=== PATIENT | female | born 1975 | race Caucasian/White ===

== ENCOUNTER 2017-05-10 15:15 | Emergency (ER) | payer BC ==
[2017-05-10 15:54] VITALS: BP 118/79; PULSE 82; TEMP 98.7; BMI 47.6
--- NOTE | 2017-05-10 16:05 | PDOC ---
History of Present Illness - General History Source: Patient Exam Limitations: No Limitations - History of Present Illness Initial Comments: 05/10/17 16:57 The patient is a 41 year old female with history of diabetes who presents to the ED complaining of several days of bilateral flank pain with associated chills. States her pain is now interfering with sleep at night. She also reports mild hematuria, now improved. No dysuria or hematuria. No fever. She has not taken any medication for pain. <Nery Romero - Last Filed: 05/10/17 18:04> <Linh Villanueva - Last Filed: 05/10/17 18:36> - General Chief Complaint: Back Pain Stated Complaint: LBP, HEMATURIA Time Seen by Provider: 05/10/17 16:05 Past History <Nery Romero - Last Filed: 05/10/17 18:04> - Past Medical History Anemia: Yes (H/O) Asthma: Yes (WITH ANXIETY) Cancer: No Cardiac Disorders: No CVA: No COPD: No CHF: No Dementia: No Diabetes: Yes (NIDDM) GI Disorders: Yes (GERD) Disorders: No HTN: No Hypercholesterolemia: No Liver Disease: Yes Seizures: No Thyroid Disease: No Other medical history: GLAUCOMA - Surgical History Abdominal Surgery: No Appendectomy: No Cardiac Surgery: No Cholecystectomy: No Lung Surgery: No Neurologic Surgery: No Orthopedic Surgery: Yes (LT CARPAL TUNNEL RELEASE 2009) - Immunization History Immunization Up to Date: No - Suicide/Smoking/Psychosocial Hx Smoking Status: No Smoking History: Never smoked Have you smoked in the past 12 months: No Number of Cigarettes Smoked Daily: 0 Hx Alcohol Use: No Drug/Substance Use Hx: No Substance Use Type: None Hx Substance Use Treatment: No <Linh Villanueva - Last Filed: 05/10/17 18:36> - Past Medical History Allergies/Adverse Reactions: Allergies Allergy/AdvReac Type Severity Reaction Status Date / Time aspirin Allergy Severe Difficulty Verified 01/28/16 10:14 Breathing fluticasone propionate Allergy Severe Hives Verified 01/28/16 10:14 [From Advair Diskus] salmeterol xinafoate Allergy Severe Hives Verified 01/28/16 10:14 [From Advair Diskus] influenza virus vaccine, Allergy Intermediate rash Verified 01/28/16 10:14 specific [influenza virus vacc,specific] Home Medications: Ambulatory Orders Metformin HCl [Glucophage] 1,000 mg PO BID 05/10/17 Metformin HCl [Glucophage] 500 mg PO DAILY 05/10/17 Sulfamethoxazole/Trimethoprim [Bactrim Ds -] 1 tab PO BID #28 tablet 05/10/17 Review of Systems - Review of Systems Able to Perform ROS?: Yes Comments:: 05/10/17 17:06 GENERAL/CONSTITUTIONAL: +Chills. No fever. No weakness. HEAD, EYES, EARS, NOSE AND THROAT: No change in vision. No ear pain or discharge. No sore throat. CARDIOVASCULAR: No chest pain or shortness of breath. RESPIRATORY: No cough, wheezing, or hemoptysis. GASTROINTESTINAL: No nausea, vomiting, diarrhea or constipation. GENITOURINARY: +R flank pain. +Hematuria (resolved). No dysuria, frequency, or change in urination. MUSCULOSKELETAL: No joint or muscle swelling or pain. No neck or back pain. SKIN: No rash NEUROLOGIC: No headache, vertigo, loss of consciousness, or change in strength/ sensation. ENDOCRINE: No increased thirst. No abnormal weight change. HEMATOLOGIC/LYMPHATIC: No anemia, easy bleeding, or history of blood clots. ALLERGIC/IMMUNOLOGIC: No hives or skin allergy. <Nery Romero - Last Filed: 05/10/17 18:04> *Physical Exam - Vital Signs Last Vital Signs Temp Pulse Resp BP Pulse Ox 98.7 F 82 17 118/79 97 05/10/17 15:37 05/10/17 15:37 05/10/17 15:37 05/10/17 15:37 05/10/17 15:37 - Physical Exam Comments: 05/10/17 17:07 GENERAL: Awake, alert, and fully oriented, in no acute distress HEAD: No signs of trauma EYES: PERRLA, EOMI, sclera anicteric, conjunctiva clear ENT: Auricles normal inspection, nares patent. Moist mucosa NECK: Normal ROM, supple, no JVD, or masses LUNGS: Breath sounds equal, clear to auscultation bilaterally. No wheezes, and no crackles HEART: Regular rate and rhythm, normal S1 and S2, no murmurs, rubs or gallops ABDOMEN: Bilateral CVA tenderness. Soft, normoactive bowel sounds. No guarding , no rebound. No masses EXTREMITIES: Normal range of motion, no edema. No clubbing or cyanosis. No cords, erythema, or tenderness NEUROLOGICAL: Alert and oriented x 3. Moves all extremities. Face is symmetric. SKIN: Warm, Dry, normal turgor, no rashes or lesions noted. <Nery Romero - Last Filed: 05/10/17 18:04> - Vital Signs Last Vital Signs Temp Pulse Resp BP Pulse Ox 98.7 F 82 17 118/79 97 05/10/17 15:37 05/10/17 15:37 05/10/17 15:37 05/10/17 15:37 05/10/17 15:37 <Linh Villanueva - Last Filed: 05/10/17 18:36> ED Treatment Course - ADDITIONAL ORDERS Additional order review: Laboratory Results 05/10/17 15:56 Urine Color Yellow Urine Appearance Clear Urine pH 5.5 Ur Specific [place] 1.020 Urine Protein Negative Urine Glucose (UA) Negative Urine Ketones Negative Urine Blood Negative Urine Nitrite Negative Urine Bilirubin Negative Urine Urobilinogen 0.2 Ur Leukocyte Esterase 1+ H Urine HCG, Qual Negative - RADIOLOGY Radiograph Interpretation: 05/10/17 18:03 CT of abdomen and pelvis. Preliminary interpretation by [facility] [employer] IMPRESSION: 1. Findings which are suspicious for hepatic cirrhosis and likely portosystemic hypertension. There appears to be periportal and peripancreatic adenopathy which can be due to liver disease. No significant ascites. 2. No hydroureteronephrosis or nephroureterolithiasis. THIS DOCUMENT HAS BEEN ELECTRONICALLY SIGNED Priyanka Nolan MD 05/10/2017 17:58 EST <Nery Romero - Last Filed: 05/10/17 18:04> Medical Decision Making - Medical Decision Making 05/10/17 17:43 UA shows 1+ LE, no WBCs. Will obtain spiral CT to r/o kidney stone. 05/10/17 18:34 Urine micro resulted, now showing 5-8 WBCs (initially marked as negative). CT shows cirrhotic liver which was preexisting as per patient. Will treat with abx in light of history of UTI leading to sepsis, as she is symptomatic and UA with signs of infection. No vomiting or fever. Stable for DC home. Patient declined pain medication in ED. <Linh Villanueva - Last Filed: 05/10/17 18:36> *DC/Admit/Observation/Transfer - Attestations Scribe Attestion: 05/10/17 17:09 Documentation prepared by Nery Romero, acting as medical practice manager for Linh Villanueva MD. <Nery Romero - Last Filed: 05/10/17 18:04> - Discharge Dispostion Admit: No <Linh Villanueva - Last Filed: 05/10/17 18:36> Diagnosis at time of Disposition: UTI (urinary tract infection) Qualifiers: Urinary tract infection type: site unspecified Hematuria presence: without hematuria Qualified Code(s): N39.0 - Urinary tract infection, site not specified - Discharge Dispostion Disposition: HOME Condition at time of disposition: Good - Prescriptions Prescriptions: Sulfamethoxazole/Trimethoprim [Bactrim Ds -] 1 tab PO BID #28 tablet - Referrals Referrals: Seb Suh MD [Primary Care Provider] - - Patient Instructions Printed Discharge Instructions: DI for Kidney Infection, DI for Urinary Tract Infection (UTI) - Post Discharge Activity
[2017-05-10 16:24] LABS: PH,URINE 5.5 (4.5-8); URINE APPEARANCE Clear; URINE BILIRUBIN Negative (NEGATIVE); URINE BLOOD Negative (NEGATIVE); URINE GLUCOSE (UA) Negative (NEGATIVE); URINE KETONE Negative (NEGATIVE); URINE NITRITE Negative (NEGATIVE); URINE PROTEIN Negative (NEGATIVE); URINE UROBILINOGEN 0.2 (0.2-1.0)
[2017-05-10 16:27] LABS: HCG,QUALITATIVE URINE NEGATIVE; URINE COLOR YELLOW
[2017-05-10 17:58] LABS: URINE RBC 0-2 /hpf (0-3)
[2017-05-10] MEDS ORDERED: SULFAMETHOXAZOLE/TRIMETHOPRIM 800MG/160MG D.S. TABLET PO ONE (18:09)
[2017-05-10] MEDS ORDERED: SULFAMETHOXAZOLE/TRIMETHOPRIM 800MG/160MG D.S. TABLET ONE (18:13)
== END 2017-05-10 18:28 | disposition home or self-care (01) ==
LOC: FER 15:15 → SUPCPDRO 15:15 → FER 18:28
DX: N39.0 Urinary tract infection, site not specified (principal); E11.9 Type 2 diabetes mellitus without complications; F41.9 Anxiety disorder, unspecified; K21.9 Gastro-esophageal reflux disease without esophagitis; K76.9 Liver disease, unspecified
CPT/HCPCS: 74176; 81003; 81015; 84703; 87086; 87186; 99282-25

== ENCOUNTER 2017-09-08 20:30 | Emergency (ER) | payer BC ==
[2017-09-08 20:42] VITALS: BP 158/89; PULSE 110; TEMP 99; BMI 47.9
[2017-09-08 22:09] LABS: URINE APPEARANCE Clear; URINE BILIRUBIN Negative (NEGATIVE); URINE BLOOD Trace-lysed (NEGATIVE); URINE COLOR YELLOW; URINE GLUCOSE (UA) Negative (NEGATIVE); URINE KETONE Trace (NEGATIVE); URINE LEUK ESTERASE 2+ (NEGATIVE); URINE NITRITE Negative (NEGATIVE); URINE PROTEIN 1+ (NEGATIVE)
[2017-09-08 22:44] LABS: EPI CELLS FEW /HPF; URINE WBC 15-25 (0-5)
[2017-09-08 22:45] LABS: URINE BACTERIA FEW /hpf (NEGATIVE)
--- NOTE | 2017-09-08 22:59 | PDOC ---
History of Present Illness - General Chief Complaint: Respiratory Stated Complaint: FEVER,COUGH SINCE THURSDAY Time Seen by Provider: 09/08/17 20:35 - History of Present Illness Initial Comments: 09/08/17 22:55 "Patient is a 42 year old F, with PMHx significant for type 2 DM and remote history of asthma, who presents with cold symptoms for 1 week. Patient states that 1 week ago she started having a fever. She also endorses a stuffy nose and productive cough with clear phlegm. She states that sometimes her cough becomes violent enough that it causes her to vomit (non-bilious, non-bloody) but denies any abdominal pain. Denies N/V/D at this time. She also endorses dysuria for the past 3 days. She states that she used her nebulizer for past 2 days and states that it helped somewhat with her cough. She also had an old prescription for a zpack which also provided mild relief. Pt denies CP/SOB. Denies leg swelling. Denies recent travel/immobilization. No h/o DVT/PE. Past History - Past Medical History Allergies/Adverse Reactions: Allergies Allergy/AdvReac Type Severity Reaction Status Date / Time aspirin Allergy Severe Difficulty Verified 09/08/17 20:32 Breathing fluticasone propionate Allergy Severe Hives Verified 09/08/17 20:32 [From Advair Diskus] salmeterol xinafoate Allergy Severe Hives Verified 09/08/17 20:32 [From Advair Diskus] influenza virus vaccine, Allergy Intermediate rash Verified 09/08/17 20:32 specific [influenza virus vacc,specific] Home Medications: Ambulatory Orders Metformin HCl [Glucophage] 1,000 mg PO BID 05/10/17 Metformin HCl [Glucophage] 500 mg PO DAILY 05/10/17 Cephalexin [Keflex] 500 mg PO BID #10 capsule 09/08/17 levoFLOXacin [Levaquin] 750 mg PO DAILY #5 tab 09/08/17 Prednisone [Prednisone 50 MG TABLETS] 50 mg PO DAILY #4 tablet 09/09/17 Anemia: Yes (H/O) Asthma: Yes (WITH ANXIETY) Cancer: No Cardiac Disorders: No CVA: No COPD: No CHF: No Dementia: No Diabetes: Yes (NIDDM) GI Disorders: Yes (GERD) Disorders: No HTN: No Hypercholesterolemia: No Liver Disease: Yes Seizures: No Thyroid Disease: No - Surgical History Abdominal Surgery: No Appendectomy: No Cardiac Surgery: No Cholecystectomy: No Lung Surgery: No Neurologic Surgery: No Orthopedic Surgery: Yes (LT CARPAL TUNNEL RELEASE 2010) - Immunization History Immunization Up to Date: No - Suicide/Smoking/Psychosocial Hx Smoking Status: No Smoking History: Never smoked Have you smoked in the past 12 months: No Number of Cigarettes Smoked Daily: 0 Information on smoking cessation initiated: No Hx Alcohol Use: No Drug/Substance Use Hx: No Substance Use Type: None Hx Substance Use Treatment: No Review of Systems - Review of Systems Comments:: 09/08/17 22:58 """GENERAL/CONSTITUTIONAL: + fever, no chills. No weakness. HEAD, EYES, EARS, NOSE AND THROAT: No change in vision. No ear pain or discharge. No sore throat. CARDIOVASCULAR: No chest pain or shortness of breath. RESPIRATORY: +cough, no wheezing, or hemoptysis. GASTROINTESTINAL: + vomiting, no diarrhea or constipation. GENITOURINARY: + dysuria, no frequency, or change in urination. MUSCULOSKELETAL: No joint or muscle swelling or pain. No neck or back pain. SKIN: No rash NEUROLOGIC: no headache, no vertigo, loss of consciousness, or change in strength/sensation. ENDOCRINE: No increased thirst. No abnormal weight change. HEMATOLOGIC/LYMPHATIC: No anemia, easy bleeding, or history of blood clots. ALLERGIC/IMMUNOLOGIC: No hives or skin allergy. """ *Physical Exam - Vital Signs Last Vital Signs Temp Pulse Resp BP Pulse Ox 99 F 110 H 18 158/89 97 09/08/17 20:38 09/08/17 20:38 09/08/17 20:38 09/08/17 20:38 09/08/17 20:38 - Physical Exam Comments: 09/08/17 22:58 "GENERAL: Awake, alert, and fully oriented, in no acute distress. HEAD: No signs of trauma EYES: PERRLA, EOMI, sclera anicteric, conjunctiva clear ENT: Auricles normal inspection, hearing grossly normal, nares patent, oropharynx clear without exudates. Moist mucosa NECK: Nontender, no stepoffs, Normal ROM, supple, no lymphadenopathy, JVD, or masses LUNGS: +prolonged expiratory phase, Breath sounds equal, clear to auscultation bilaterally. No wheezes, and no crackles HEART: Regular rate and rhythm, normal S1 and S2, no murmurs, rubs or gallops ABDOMEN: Soft, nontender, normoactive bowel sounds. No guarding, no rebound. No masses EXTREMITIES: Normal range of motion, no edema. No clubbing or cyanosis. No cords, erythema, or tenderness NEUROLOGICAL: Cranial nerves II through XII intact. 5/5 strength and sensation in all extremities, Normal speech, normal gait, normal cerebellar function SKIN: Warm, Dry, normal turgor, no rashes or lesions noted. " ED Treatment Course - ADDITIONAL ORDERS Additional order review: Laboratory Results 09/08/17 09/08/17 22:00 22:00 Urine Color Yellow Urine Appearance Clear Urine pH 6.0 Ur Specific [place] 1.025 Urine Protein 1+ H Urine Glucose (UA) Negative Urine Ketones Trace Urine Blood Trace-lysed H Urine Nitrite Negative Urine Bilirubin Negative Urine Urobilinogen 1.0 Ur Leukocyte Esterase 2+ H Urine RBC 2-5 Urine WBC 15-25 Ur Epithelial Cells Few Urine Bacteria Few Urine HCG, Qual Negative - RADIOLOGY Radiology Studies Ordered: Category Date Time Status CHEST PA & LAT [RAD] Stat Radiology 09/08/17 21:57 Taken Medical Decision Making - Medical Decision Making 09/08/17 22:58 42 F with URI like symptoms x 1 week. Pt with no wheezing but prolonged expiratory phase on exam. Possible asthma component. Given duration of symptoms , will also r/o PNA with CXR. Pt also with dysuria so will evaluate for UTI. - CXR - UA, UCx - Nebulizers 09/08/17 23:57 UA consistent with UTI. Prelim read of CXR shows possible bilateral opacities. I discussed with pt my recommendation for inpt admission for IV abx given outpt failure of azithromycin. However, pt refusing admission at this time. Pt already received 1 dose keflex for her UTI in ED. Will switch abx to levaquin, which should cover for CAP as well as UTI. Pt instructed to return in 48 hours if symptoms have not improved. Pt is well appearing. Clinically stable for DC at this time. Pt with some mild persistent tachycardia, likely 2/2 nebulizer use. I discussed the physical exam findings, ancillary test results and final diagnoses with the patient. I answered all of the patient's questions. The patient was satisfied with the care received and felt comfortable with the discharge plan and treatment plan. The patient agrees to follow up with the primary care physician within 24-72 hours. *DC/Admit/Observation/Transfer Diagnosis at time of Disposition: UTI (urinary tract infection), PNA (pneumonia) - Discharge Dispostion Disposition: HOME Condition at time of disposition: Stable - Prescriptions Prescriptions: Cephalexin [Keflex] 500 mg PO BID #10 capsule levoFLOXacin [Levaquin] 750 mg PO DAILY #5 tab Prednisone [Prednisone 50 MG TABLETS] 50 mg PO DAILY #4 tablet - Referrals - Patient Instructions Printed Discharge Instructions: Urinary Tract Infection Additional Instructions: You have a urine infection. You may also have pneumonia. Take the levaquin as prescribed to treat both. Use your nebulizer every 4 hours for your cough. If you do not feel better after 48 hours or if you experience worsening cough, shortness of breath, or any other concerning symptoms, return to the ER immediately. You may need IV antibiotics if you do not feel better by that time. Otherwise, follow up with your primary doctor within 1 week. - Post Discharge Activity Forms/Work/School Notes: Back to Work - Attestations Physician Attestion: 09/09/17 00:03 I, Dr. Korey Amaya MD, attest that this document has been prepared under my direction and personally reviewed by me in its entirety. I further attest, that it accurately reflects all work, treatment, procedures and medical decision -making performed by me.
[2017-09-08] MEDS ORDERED: CEPHALEXIN MONOHYDRATE 500 MG CAPSULE (UD) PO ONE (23:00)
[2017-09-08] MEDS ORDERED: CEPHALEXIN MONOHYDRATE 500 MG CAPSULE (UD) ONE (23:02)
[2017-09-08] MEDS ORDERED: ALBUTEROL SO4 2.5/IPRATROPIUM 0.5 INH SOL 3 ML VIAL.NEB. NEB ONE ×2 (23:05)
== END 2017-09-09 00:11 | disposition home or self-care (01) ==
LOC: FER 20:30
PROC: 3E0F7GC Introduction of Other Therapeutic Substance into Respiratory Tract, Via Natural or Artificial Opening (ICD-10-PCS; principal; 2017-09-08)
DX: J18.9 Pneumonia, unspecified organism (principal); N39.0 Urinary tract infection, site not specified; E11.9 Type 2 diabetes mellitus without complications; J45.909 Unspecified asthma, uncomplicated; Z79.84 Long term (current) use of oral hypoglycemic drugs
CPT/HCPCS: 71046-TC-FY; 81003; 81015; 84703; 87086; 99281-25; J7620

== ENCOUNTER 2018-01-07 08:32 | Day surgery (SDC) | payer BC ==
--- NOTE | 2018-01-07 10:18 | PROC ---
Endoscopy Procedure Endoscopy procedure completed. Please see scanned procedure report.
[2018-01-07 10:53] VITALS: TEMP 98.6
[2018-01-07 11:34] VITALS: BP 134/61; PULSE 82
--- NOTE | 2018-01-08 13:20 | PATH ---
Surgical Pathology Report Patient Name: LUIS MELLO [facility]. Rec. #: [id number] /Age/Gender: 1975 (Age: 42) / F Account: [id number] Location: [facility]-ENDOSCOPY Taken: 01/07/2018 Received: 01/07/2018 Reported: 01/08/2018 Physicians: Sanju Mulligan M.D. Specimen(s) Received A: BX 2ND PORTION DUODENUM B: BX ANTRUM AND BODY Clinical History Cirrhosis of liver, nonalcoholic steatohepatitis Postoperative diagnosis: Gastritis, esophageal varices Final Diagnosis A. SECOND PORTION DUODENUM, BIOPSY: DUODENAL MUCOSA WITH NO DIAGNOSTIC ABNORMALITIES. B. ANTRUM AND BODY, BIOPSY: GASTRIC MUCOSA WITH MILD CHRONIC GASTRITIS. IMMUNOSTAIN IS NEGATIVE FOR H. PYLORI ORGANISMS. Electronically Signed Alejandro Fernandez M.D. Gross Description A. Received in formalin, labeled "biopsy second portion of duodenum" are 2 snow, irregular portions of soft tissue averaging 0.3 cm. in greatest dimension. The specimens are submitted in toto in one cassette. B. Received in formalin, labeled "biopsy antrum and body" are 2 snow, irregular portions of soft tissue measuring 0.2 and 0.6 cm. in greatest dimension. The specimens are submitted in toto in one cassette. 01/07/2018 [facility]01/07/2018
== END 2018-01-07 11:35 | disposition home or self-care (01) ==
LOC: JASU-ENDO 08:32
PROVIDERS: ATTEND Internal Medicine Gastroenterology
PROC: 0DB68ZX Excision of Stomach, Via Natural or Artificial Opening Endoscopic, Diagnostic (ICD-10-PCS; 2018-01-07)
PROC: 0DB98ZX Excision of Duodenum, Via Natural or Artificial Opening Endoscopic, Diagnostic (ICD-10-PCS; principal; 2018-01-07 09:15)
DX: K74.69 Other cirrhosis of liver (principal); K29.60 Other gastritis without bleeding; I85.00 Esophageal varices without bleeding; E11.9 Type 2 diabetes mellitus without complications; Z79.84 Long term (current) use of oral hypoglycemic drugs; I10 Essential (primary) hypertension; D64.9 Anemia, unspecified
CPT/HCPCS: 82962; 84703; 88305-TC; 88342-TC

== ENCOUNTER 2018-03-23 08:53 | Day surgery (SDC) | payer BC ==
[2018-03-22 10:06] VITALS: BMI 48.4
[2018-03-23] MEDS ORDERED: ONDANSETRON 4 MG/2 ML VIAL IVPUSH PRN ×2 (09:49→11:12)
[2018-03-23] MEDS ORDERED: LACTATED RINGERS SOLUTION 1,000 ML IV SCH (10:00)
--- NOTE | 2018-03-23 10:08 | HP ---
History & Physical Update - Physical Physical: No Change - Assessment Assessment: No Change - Plan Plan: No Change (hysteroscopy , D&C. polypectomy)
[2018-03-23] MEDS ORDERED: PROPOFOL 20 ML ONE (10:13)
[2018-03-23] MEDS ORDERED: MIDAZOLAM HCL 2 MG/2 ML SINGLE DOSE VIAL ONE (10:13)
[2018-03-23] MEDS ORDERED: SUCCINYLCHOLINE CHLORIDE 200 MG/10 ML VIAL ONE (10:14)
--- NOTE | 2018-03-23 10:19 | HP ---
Past Medical History - Primary Care Physician PCP:: Joel Adkins - Admission Chief Complaint: menometrorrhagia, EM polyp History of Present Illness: 42 yo f c/o heavy ,irregular vaginal bleeding, sono irregular EM .with EM polyp.admitted for hysteroscopy D&C ,polypectomy, rba to procedure discussed History Source: Patient Limitations to Obtaining History: No Limitations - Past Medical History Cardiovascular: Yes: HTN Pulmonary: Yes: Asthma Heme/Onc: Yes: Anemia Endocrine: Yes: Diabetes Mellitus - Past Surgical History Hx Myomectomy: No Hx Transabdominal Cerclage: No - Smoking History Smoking history: Never smoked Have you smoked in the past 12 months: No Aproximately how many cigarettes per day: 0 - Alcohol/Substance Use Hx Alcohol Use: No - Social History Usual Living Arrangement: Yes: With Spouse History of Recent Travel: No Home Medications - Allergies Allergies/Adverse Reactions: Allergies Allergy/AdvReac Type Severity Reaction Status Date / Time aspirin Allergy Severe Difficulty Verified 09/08/17 20:32 Breathing fluticasone propionate Allergy Severe Hives Verified 09/08/17 20:32 [From Advair Diskus] salmeterol xinafoate Allergy Severe Hives Verified 09/08/17 20:32 [From Advair Diskus] influenza virus vaccine, Allergy Intermediate rash Verified 09/08/17 20:32 specific [influenza virus vacc,specific] - Home Medications Home Medications: Ambulatory Orders Metformin HCl [Glucophage] 1,000 mg PO BID 05/10/17 Albuterol Sulfate [Proair Respiclick] 90 mcg IH DAILY PRN 01/06/18 Montelukast Na [Singulair -] 10 mg PO HS 01/06/18 Brimonidine Tartrate/Timolol [Combigan Eye Drops] 5 ml OP BID 03/23/18 Review of Systems - Review of Systems Constitutional: reports: No Symptoms Eyes: reports: No Symptoms HENT: reports: No Symptoms Neck: reports: No Symptoms Cardiovascular: reports: No Symptoms Respiratory: reports: No Symptoms Gastrointestinal: reports: No Symptoms Genitourinary: reports: Vaginal Bleeding Musculoskeletal: reports: No Symptoms Integumentary: reports: No Symptoms Neurological: reports: No Symptoms Endocrine: reports: No Symptoms Hematology/Lymphatic: reports: No Symptoms Psychiatric: reports: No Symptoms Physical Exam-[employer] Vital Signs: Vital Signs Temperature 98.6 F 03/23/18 09:43 Pulse Rate 91 H 03/23/18 09:43 Respiratory Rate 20 03/23/18 09:43 Blood Pressure 120/62 03/23/18 09:43 O2 Sat by Pulse Oximetry (%) 98 03/23/18 09:43 Constitutional: Yes: Well Nourished, No Distress, Calm, Obese Eyes: Yes: WNL, Conjunctiva Clear, EOM Intact HENT: Yes: WNL, Atraumatic, Normocephalic Neck: Yes: WNL, Supple, Trachea Midline Cardiovascular: Yes: WNL, Regular Rate and Rhythm Respiratory: Yes: WNL, Regular, CTA Bilaterally Gastrointestinal: Yes: WNL ...Rectal Exam: Yes: WNL Renal/: Yes: WNL External Genitalia: Yes: Normal Vaginal Exam: Yes: Normal Cervix: Yes: Normal Uterus: Yes: Enlarged Adnexa: Not Palpable: Left, Right Breast(s): Yes: WNL Musculoskeletal: Yes: WNL Extremities: Yes: WNL Edema: No Integumentary: Yes: WNL Neurological: Yes: WNL, Alert, Oriented ...Motor Strength: WNL Psychiatric: Yes: WNL, Alert, Oriented Problem List - Problem (1) Menometrorrhagia Code(s): N92.1 - EXCESSIVE AND FREQUENT MENSTRUATION WITH IRREGULAR CYCLE (2) Endometrial polyp Code(s): N84.0 - POLYP OF CORPUS UTERI Assessment/Plan hysteroscopy D&C , polypectomy
[2018-03-23] MEDS ORDERED: KETOROLAC TROMETHAMINE 30 MG/1 ML VIAL ONE (10:52)
[2018-03-23] MEDS ORDERED: oxyCODONE HCL 5 MG TABLET PO PRN (11:12)
[2018-03-23] MEDS ORDERED: ELECTROLYTE-148 SOLN 1,000 ML IV SCH (11:15)
[2018-03-23] MEDS ORDERED: NEOSTIGMINE METHYLSULFATE 0.5 MG/ML - 10 ML MDV ONE (11:40)
--- NOTE | 2018-03-23 11:41 | OP ---
DATE OF OPERATION: 03/23/2018 PREOPERATIVE DIAGNOSIS: Menometrorrhagia, endometrial polyp. POSTOPERATIVE DIAGNOSIS: Menometrorrhagia, endometrial polyp. PROCEDURE: Hysteroscopy, dilation and curettage, endometrial polypectomy. SURGEON: Joel Adkins MD ANESTHESIA: General. ESTIMATED BLOOD LOSS: 25 mL. DESCRIPTION OF PROCEDURE: The patient was taken to the operating room. Under adequate general anesthesia, abdomen and perineum were prepped and draped. Vagina was prepped and draped. Then examination under anesthesia revealed external genitalia to be normal. Cervix was low in the lower part of the vagina. Uterus was prominent, anteverted with no masses. Adnexa, no masses were palpable. Then with a weighted speculum in the vagina, anterior lip of the cervix was grasped with a single-tooth tenaculum and then the cervix was slightly dilated with Hegar dilator. Hysteroscope was introduced. Visualization of endocervical canal appeared to be normal. There were 2 small polyps seen in the lower uterine segment. Both cornua regions were identified and were normal. The rest of the endometrium appeared to be normal. No submucosa myoma was seen. Then the hysteroscope was withdrawn and the polyp was removed. Dilation and curettage was done. Then hysteroscope was re-introduced. Visualization of the uterine cavity showed there was no more polyp seen. The patient tolerated the procedure well and left the OR in good condition. JOEL ADKINS M.D. [id number]
[2018-03-23 13:04] VITALS: PULSE 100; TEMP 97.9
[2018-03-23 14:23] VITALS: BP 123/64
--- NOTE | 2018-03-24 19:00 | PATH ---
Surgical Pathology Report Patient Name: LUIS MELLO [facility]. Rec. #: [id number] /Age/Gender: 1975 (Age: 42) / F Account: [id number] Location: [facility] SURGICAL Taken: 03/23/2018 Received: 03/23/2018 Reported: 03/24/2018 Physicians: Joel Adkins M.D. Specimen(s) Received A: ENDOMETRIAL POLYP B: ENDOMETRIAL CURETTINGS Clinical History Excessive and frequent menstruation Final Diagnosis A. ENDOMETRIAL POLYP, POLYPECTOMY: FRAGMENTS OF MIXED ENDOMETRIAL AND CERVICAL POLYP AND BENIGN ENDOCERVICAL TISSUE. B. ENDOMETRIAL CURETTINGS, DILATION AND CURETTAGE: FRAGMENTS OF ENDOMETRIAL POLYP, PROLIFERATIVE ENDOMETRIUM, SUPERFICIAL MYOMETRIUM, AND BENIGN ENDOCERVICAL TISSUE. Electronically Signed Charlette Gong M.D. Gross Description A. Received in formalin labeled "endometrial polyp," is a 2.0 x 1.4 x 0.3 cm aggregate of snow-pink, irregular to polypoid portions of soft tissue. The formalin is filtered and the specimen is entirely submitted in one cassette. B. Received in formalin labeled "endometrial curettings," is a 3.3 x 2.5 x 0.3 cm aggregate of snow-pink soft tissue fragments admixed with blood clot. The formalin is filtered and the specimen is entirely submitted in 2 cassettes. 03/23/201803/23/2018
== END 2018-03-23 14:24 | disposition home or self-care (01) ==
LOC: JASU-SURG 08:53
PROVIDERS: ATTEND Obstetrics & Gynecology
PROC: 0UJD8ZZ Inspection of Uterus and Cervix, Via Natural or Artificial Opening Endoscopic (ICD-10-PCS; 2018-03-23)
PROC: 0UB97ZX Excision of Uterus, Via Natural or Artificial Opening, Diagnostic (ICD-10-PCS; principal; 2018-03-23 10:00)
PROC: 0UDB7ZX Extraction of Endometrium, Via Natural or Artificial Opening, Diagnostic (ICD-10-PCS; 2018-03-23 10:00)
DX: N92.1 Excessive and frequent menstruation with irregular cycle (principal); N84.0 Polyp of corpus uteri
CPT/HCPCS: 82962; 84703; 88305-TC; 94760

== ENCOUNTER 2019-02-17 20:02 | Emergency (ER) | payer OTHER ==
[2019-02-17 20:15] VITALS: BP 136/70; BMI 48.4
[2019-02-17] MEDS ORDERED: ACETAMINOPHEN 1000 MG/100 ML VIAL (NON FORMULARY) IVPB ONE (20:26)
[2019-02-17] MEDS ORDERED: DEXTROSE 5%-NORMAL SALINE 1,000 ML IV ONE (20:26)
[2019-02-17] MEDS ORDERED: ACETAMINOPHEN INJECTION 100 ML IVPB ONE (20:32)
[2019-02-17 20:54] LABS: BASO % 2.1 % (0-2.0); EOS % 0.1 % (0-4.5); HEMATOCRIT 42.5 % (32.4-45.2); HEMOGLOBIN 14.2 GM/dl (10.7-15.3); MCH 30.4 pg (25.7-33.7); MCHC 33.5 g/dl (32.0-36.0); MEAN CELL VOLUME 90.8 fl (80-96); MEAN PLT VOLUME 9.6 fl (7.5-11.1); MONO % 7.2 % (3.8-10.2); NEUT % 77.6 % (42.8-82.8); PLATELET COUNT 109 K/MM3 (134-434); RBC 4.68 M/mm3 (3.60-5.2); RDW 15.8 % (11.6-15.6); WHITE BLOOD COUNT 12.2 K/mm3 (4.0-10.8)
[2019-02-17 21:08] LABS: ALBUMIN 3.3 g/dl (3.4-5.0); BILIRUBIN,TOTAL 0.9 mg/dl (0.2-1); CALCIUM 8.1 mg/dl (8.5-10); CREATININE 0.5 mg/dl (0.55-1.3); TOT PROT 6.9 g/dl (6.4-8.2)
[2019-02-17] MEDS ORDERED: morphine CARPU-JECT 4 MG/1 ML DISP.SYRIN IVPUSH ONE (21:57)
[2019-02-17] MEDS ORDERED: ONDANSETRON 4 MG/2 ML VIAL IVPUSH ONE (21:57)
[2019-02-17] MEDS ORDERED: morphine SULFATE 4 MG/ML VIAL ONE (21:59)
[2019-02-17] MEDS ORDERED: ONDANSETRON 4 MG/2 ML VIAL ONE (21:59)
--- NOTE | 2019-02-17 22:00 | PDOC ---
Documentation entered by Eduar Wallcae SCRIBE, acting as scribe for Yojana Akhtar MD. Yojana Akhtar MD: This documentation has been prepared by the Rodrigo restrepo Daniel, SCRIBE, under my direction and personally reviewed by me in its entirety. I confirm that the documentation accurately reflects all work, treatment, procedures, and medical decision making performed by me. History of Present Illness - General Chief Complaint: Pain, Acute Stated Complaint: ABD PAIN History Source: Patient Exam Limitations: No Limitations - History of Present Illness Initial Comments: 02/17/19 20:24 HPI The patient is a 43 year old female with a past medical history of diabetes and liver cirrhosis from DM?/fatty liver presenting with abdominal pain. The patient reports that her abdominal pain began yesterday but she did not think anything of it. She reports that the pain worsened today and notes not being able to get out of bed due to the pain. She describes lower abdominal pain, worse RLQ and suprapubic, constantly today, and as if someone is "pulling her organs". She also reports that she had burning with urination which has since resolved. Patient notes associated nausea, fever, dizziness, and headache. Denies chills, chest pain, SOB, palpitation, weakness, V, D, bladder and bowel problems, focal weakness/paresthesias, leg swelling/pain, rash. Denies vaginal bleeding, discharge. No sick contacts or travel. No new changes in medications. No suspicious food intake Allergies: aspirin, fluticasone propionate, salmeterol xinafoate, influenza virus vaccine Past Medical History/PSH: see above. x2, carpal tunnel release, tubal ligation. Social history: Lives with family. No tobacco, ETOH or drug use. Meds: as documented in EMR Family history: noncontributory LMP: 01/23/19 - due for her period this week Review of systems Constitutional: +fevers or chills. No weakness HEENT: no headache or dizziness. No congestion. No visual/hearing disturbances. CVS: no cp or syncope. Resp: no sob. No cough. Gastrointestinal: +abdominal pain, nausea, vomiting. no diarrhea Genitourinary: no hematuria. +dysuria. no vaginal discharge or odor. MUSCULOSKELETAL: No joint pain and swelling. No neck or back pain. SKIN: no redness or skin changes, no discharge, no rash. No wounds. Hematologic: no easy bruising/bleeding. NEUROLOGIC: No headache, dizziness, LOC or altered mental status. No weakness, numbness or tingling. Psych: no anxiety or depression Allergic/Immunologic: no allergies All other systems reviewed and negative, or as documented in HPI. Physical exam General: Well appearing, awake and alert, NAD. HEENT: NCAT, PERRL, EOMI, clear conjunctiva, anicteric, moist mucus membranes, clear oropharynx, no oral lesions.. Neck: neck supple, FROM Resp: CTAB, normal and even respirations, no respiratory distress CVS: RRR, no murmurs, 2+ peripheral pulses throughout, no peripheral edema Abdomen: +right upper and lower quadrant and suprapubic tenderness to palpation. soft, morbidly obese, no rebound or guarding. No CVAT. Back: nontender, normal inspection and ROM MSK: no edema, CALDERON x4, ROM intact. No clubbing or cyanosis. normal bulk and tone. Extremities: no calf tenderness Neuro: alert, oriented appropriately Psych: Calm and cooperative Skin: warm and well perfused, cap refill <2 sec, normal color 02/17/19 21:57 02/17/19 23:15 Past History - Past Medical History Allergies/Adverse Reactions: Allergies Allergy/AdvReac Type Severity Reaction Status Date / Time aspirin Allergy Severe Difficulty Verified 09/08/17 20:32 Breathing fluticasone propionate Allergy Severe Hives Verified 09/08/17 20:32 [From Advair Diskus] salmeterol xinafoate Allergy Severe Hives Verified 09/08/17 20:32 [From Advair Diskus] influenza virus vaccine, Allergy Intermediate rash Verified 09/08/17 20:32 specific [influenza virus vacc,specific] Home Medications: Ambulatory Orders Metformin HCl [Glucophage] 1,000 mg PO BID 05/10/17 Albuterol Sulfate [Proair Respiclick] 90 mcg IH DAILY PRN 01/06/18 Brimonidine Tartrate/Timolol [Combigan Eye Drops] 5 ml OP BID 03/23/18 Ciprofloxacin HCl [Cipro] 500 mg PO BID 10 Days #20 tablet 02/17/19 Oxycodone HCl 10 mg PO Q6H PRN #12 tablet MDD 4 02/17/19 Sennosides/Docusate Sodium [Senna-Docusate Sodium Tablet] 1 each PO DAILY #10 tablet 02/17/19 metroNIDAZOLE [Flagyl -] 500 mg PO BID 10 Days #20 tablet 02/17/19 Anemia: Yes (IRON DEFICIENCY ANEMIA) Asthma: Yes (WITH ANXIETY) Cancer: No Cardiac Disorders: No CVA: No COPD: No CHF: No Dementia: No Diabetes: Yes GI Disorders: Yes (GERD) Disorders: No HTN: Yes Hypercholesterolemia: Yes Liver Disease: Yes (FATTY LIVER, CIRRHOSIS, RIOS) Seizures: No Thyroid Disease: No - Surgical History Abdominal Surgery: Yes Appendectomy: No Cardiac Surgery: No Cholecystectomy: No Lung Surgery: No Neurologic Surgery: No Orthopedic Surgery: Yes (LT CARPAL TUNNEL RELEASE 2009) - Immunization History Immunization Up to Date: No - Psycho Social/Smoking Cessation Hx Smoking Status: No Smoking History: Never smoked Have you smoked in the past 12 months: No Number of Cigarettes Smoked Daily: 0 Hx Alcohol Use: No Drug/Substance Use Hx: No Substance Use Type: None Hx Substance Use Treatment: No *Physical Exam - Vital Signs Last Vital Signs Temp Pulse Resp BP Pulse Ox 102 F H 94 H 18 136/70 98 02/17/19 20:08 02/17/19 20:08 02/17/19 20:08 02/17/19 20:08 02/17/19 20:08 ED Treatment Course - LABORATORY CBC & Chemistry Diagram: 02/17/19 20:45 02/17/19 20:45 - ADDITIONAL ORDERS Additional order review: Laboratory Results 02/17/19 02/17/19 20:00 20:00 Urine Color Yellow Urine Appearance Clear Urine pH 6.0 Urine Protein Negative Urine Glucose (UA) Negative Urine Ketones 1+ H Urine Blood Negative Urine Nitrite Negative Urine Bilirubin Negative Urine Urobilinogen 1.0 Ur Leukocyte Esterase Negative Urine HCG, Qual Negative Medical Decision Making - Medical Decision Making 02/17/19 21:59 Vital Signs Temp Pulse Resp BP Pulse Ox 102 F H 94 H 18 136/70 98 02/17/19 20:08 02/17/19 20:08 02/17/19 20:08 02/17/19 20:08 02/17/19 20:08 Vital signs reviewed, febrile, normotensive, sats and pulse ox within normal limits. DDx abdominal pain: Renal colic, biliary colic, metabolic/electrolyte derangements. GERD, PUD, esophageal spasm, pancreatitis, hepatitis, constipation , colitis, gastroenteritis, cholecystitis, UTI, pyelonephritis, ileus, SBO, medication side effect, hernia, appendicitis, diverticulitis, mesenteric ischemia. msk strain, mesenteric adenitis, psoas abscess. 02/17/19 22:00 Laboratory results reviewed, mild leukocytosis 12 point 2K, no differential change. Creatinine and electrolytes are normal, LFTs are also within normal limits. Lipase normal. Urinalysis with 1+ ketones otherwise negative for any signs of infection. Will need CT abdomen and pelvis to evaluate for possible cholecystitis versus appendicitis versus intra-abdominal infection/ inflammation. Patient has been given IV fluids, appropriate analgesia and fever is improved, abdominal pain also improved after Tylenol will redosed with morphine if recurs. CT scan notable for acute sigmoid uncomplicated diverticulitis, cholelithiasis is also noted, no other intra-abdominal etiology is isolated. Will provide patient with ciprofloxacin and Flagyl antibiotics x10-day course for acute diverticulitis. Can start with liquid diet and advance as tolerated, bland diet and advance. High-fiber diet in the long run to prevent constipation. Will also Rx stool softeners with oxycodone, as patient elects for analgesia for severe pain, instructed to take ibuprofen/Tylenol as needed for mild to moderate pain. Pt to be discharged in stable condition. Patient and family made aware of clinical impression, treatment recommendations and disposition plan, return precautions discussed (including but not limited to new or persistent/worsening symptoms, pain, fevers, or signs of infection, chest pain, respiratory distress , inability to tolerate oral intake, dehydration, syncope, or neurologic changes ). Follow up with PMD and/or GI specialist as recommended, follow up information provided, take medications as instructed for duration of time. continue with supportive care, avoid triggers and precipitants. All questions answered to patient's satisfaction and expressed understanding and comfort with this. At the time of discharge, the patient is alert, clinically improved, tolerating po and verbalizes understanding of instructions, satisfied with the care received and felt comfortable with the plan. Patient does not suffer from an acute life-threatening medical condition at this time and is safe for outpatient follow-up. 02/17/19 23:16 Discharge - Discharge Information Problems reviewed: Yes Clinical Impression/Diagnosis: Acute diverticulitis Condition: Stable Disposition: HOME - Admission No - Additional Discharge Information Prescriptions: Ciprofloxacin HCl [Cipro] 500 mg PO BID 10 Days #20 tablet metroNIDAZOLE [Flagyl -] 500 mg PO BID 10 Days #20 tablet Oxycodone HCl 10 mg PO Q6H PRN #12 tablet MDD 4 PRN Reason: Pain Sennosides/Docusate Sodium [Senna-Docusate Sodium Tablet] 1 each PO DAILY #10 tablet - Follow up/Referral Referrals: Artis Gray MD [Staff Physician] - [facility] [Provider Group] [facility] [Provider Group] Jessica Vaughan MD [Staff Physician] - Janak Day MD [Staff Physician] - Abilio Day MD [Staff Physician] - Teddy Sorto MD [Staff Physician] - - Patient Discharge Instructions Patient Printed Discharge Instructions: DI for Diverticulitis, [place] Diet Additional Instructions: 1) Please follow-up with your primary care doctor in the next 1-2 days. Please call tomorrow for for any urgent issues. You have a condition called acute diverticulitis 2) You were given a copy of the tests performed today. Please bring the results with you and review them with your primary care doctor. Your laboratory / imaging results were normal, CT scan showed diverticulitis and gallstones. 3) If you have any worsening of symptoms or any other concerns please return to the ED immediately. Return if worsening symptoms including fevers, headache, vomiting, visual or hearing disturbances, abdominal pain, chest pain, shortness of breath, syncope, dehydration, inability to take things by mouth/vomiting, altered mental status, or worsening concerning symptoms. 4) Please continue taking your home medications as directed. your medications on discharge include Ciprofloxacin and metronidazole twice a day for 10 days, first dose has been given to you . side effects may include upset stomach, abdominal pain, vomiting, or diarrhea. do not drink alcohol with your medications. Please take IBUPROFEN (aka MOTRIN, ADVIL, ALEVE) 400 mg and/or ACETAMINOPHEN ( aka Tylenol) 650-975 mg every 6 hours, as needed, for pain. Please do not take these medications if you have a bleeding disorder, stomach or GI ulcer problems or liver disease. Will discharge patient with a short course of opiates. Went over the risks of the medication. Advised patient to not mix with other products containing acetaminophen, to not combine with alcohol, or other illicit drugs, to not drive or operate machinery, and to refrain from any activity that will require complete attention while taking this medication. Please take one tablet of OXYCODONE every 6 hours, as needed for SEVERE pain. Please do not take this medication unless you absolutely need it, it is very addictive. Please do not drive, operate heavy machinery or make important decisions while on this medication, it can cloud your judgement. Stay well hydrated and rest adequately. Make an appointment. If you cannot follow-up with your primary care doctor please return to the ED - Post Discharge Activity
[2019-02-17] MEDS ORDERED: metroNIDAZOLE 250 MG TABLET PO ONE (23:14)
[2019-02-17] MEDS ORDERED: CIPROFLOXACIN 500 MG TABLET (RESTRICTED TO ID) PO ONE (23:14)
[2019-02-17] MEDS ORDERED: oxyCODONE HCL 5 MG TABLET PO ONE (23:15)
[2019-02-17 23:20] VITALS: PULSE 88; TEMP 99.9
[2019-02-17] MEDS ORDERED: oxyCODONE HCL 5 MG TABLET ONE (23:20)
[2019-02-17] MEDS ORDERED: CIPROFLOXACIN 250 MG TABLET (RESTRICTED TO ID) PO ONE (23:21)
[2019-02-17] MEDS ORDERED: metroNIDAZOLE 250 MG TABLET ONE (23:21)
== END 2019-02-17 23:38 | disposition home or self-care (01) ==
LOC: FER 20:02
PROC: 3E033NZ Introduction of Analgesics, Hypnotics, Sedatives into Peripheral Vein, Percutaneous Approach (ICD-10-PCS; principal; 2019-02-17)
PROC: 3E0337Z Introduction of Electrolytic and Water Balance Substance into Peripheral Vein, Percutaneous Approach (ICD-10-PCS; 2019-02-17)
PROC: 3E033GC Introduction of Other Therapeutic Substance into Peripheral Vein, Percutaneous Approach (ICD-10-PCS; 2019-02-17)
DX: K57.92 Diverticulitis of intestine, part unspecified, without perforation or abscess without bleeding (principal); I10 Essential (primary) hypertension; E78.00 Pure hypercholesterolemia, unspecified; E11.9 Type 2 diabetes mellitus without complications; K74.60 Unspecified cirrhosis of liver; K76.0 Fatty (change of) liver, not elsewhere classified; K21.9 Gastro-esophageal reflux disease without esophagitis; Z88.6 Allergy status to analgesic agent; Z88.8 Allergy status to other drugs, medicaments and biological substances; Z79.84 Long term (current) use of oral hypoglycemic drugs
CPT/HCPCS: 36415; 74177-TC; 80053; 81003; 83690; 84703; 85025; 87086; 99283-25; J0131

== ENCOUNTER 2020-07-03 14:33 | Emergency (ER) | payer OTHER ==
[2020-07-03 15:02] VITALS: BMI 47.2
[2020-07-03] MEDS ORDERED: BAMLANIVIMAB 700 MG in SODIUM CHLORIDE 250 ML IVPB ONE (15:12)
[2020-07-03 15:53] LABS: HEMATOCRIT 41.9 % (32.4-45.2); HEMOGLOBIN 14.4 GM/dL (10.7-15.3); MCH 31.2 pg (25.7-33.7); MCHC 34.3 g/dl (32.0-36.0); MEAN CELL VOLUME 91.1 fl (80-96); MEAN PLT VOLUME 9.6 fl (7.5-11.1); PLATELET COUNT 76 K/MM3 (134-434); RDW 15.5 % (11.6-15.6); WHITE BLOOD COUNT 2.6 K/mm3 (4.0-10.0)
[2020-07-03 16:27] LABS: POTASSIUM 5.2 mmol/L (3.5-5.1)
[2020-07-03 16:29] LABS: CALCIUM 8.2 mg/dL (8.5-10.1)
[2020-07-03 16:30] LABS: BLOOD UREA NITROGEN 10.5 mg/dL (7-18)
[2020-07-03 16:33] LABS: CREATININE 0.6 mg/dL (0.55-1.3)
[2020-07-03 20:30] VITALS: BP 137/73; PULSE 89; TEMP 98.2
== END 2020-07-03 19:31 | disposition home or self-care (01) ==
LOC: JCOVINFU 14:33
PROC: 3E033GC Introduction of Other Therapeutic Substance into Peripheral Vein, Percutaneous Approach (ICD-10-PCS; principal; 2020-07-03)
DX: U07.1 COVID-19 (principal); J06.9 Acute upper respiratory infection, unspecified
CPT/HCPCS: 36415; 71046-TC-FY; 80048; 85027; 99284-25; M0239; Q0239

== ENCOUNTER 2020-12-05 00:53 | Emergency (ER) | payer OTHER ==
[2020-12-05 01:22] VITALS: BP 119/82; PULSE 88; TEMP 99; BMI 45.1
[2020-12-05] MEDS ORDERED: VANCOMYCIN 1 GM in D5W (PRE-DOCKED) 1,000 MG/250 ML IVPB ONE (01:30)
[2020-12-05] MEDS ORDERED: VANCOMYCIN 1,000 MG VIAL (RESTRICTED TO ID ONLY) ONE (01:31)
[2020-12-05 01:54] LABS: BASO % 0.4 % (0-2.0); EOS % 0.7 % (0-4.5); HEMATOCRIT 43.2 % (32.4-45.2); HEMOGLOBIN 14.7 GM/dL (10.7-15.3); LYMPH % 28.6 % (8-40); MCH 31.6 pg (25.7-33.7); MEAN PLT VOLUME 10.3 fl (7.5-11.1); MONO % 13.9 % (3.8-10.2); NEUT % 56.4 % (42.8-82.8); PLATELET COUNT 101 10^3/uL (134-434); RBC 4.65 M/mm3 (3.60-5.2); RDW 15.3 % (11.6-15.6)
[2020-12-05 02:14] LABS: ALBUMIN 3.3 g/dl (3.4-5.0); BLOOD UREA NITROGEN 11.6 mg/dL (7-18); CALCIUM 8.3 mg/dL (8.5-10.1)
[2020-12-05 02:18] LABS: CREATININE 0.9 mg/dL (0.55-1.3)
[2020-12-05 02:19] LABS: BILIRUBIN,TOTAL 0.4 mg/dL (0.2-1); TOT PROT 7.2 g/dl (6.4-8.2)
== END 2020-12-05 03:07 | disposition home or self-care (01) ==
LOC: FER 00:53
DX: L03.115 Cellulitis of right lower limb (principal)
CPT/HCPCS: 36415; 80053; 85025; 87040; 99284-25